=== PATIENT | female | born 1965 | race Caucasian/White ===

== ENCOUNTER 2018-08-17 19:52 | Emergency (ER) | payer SELFPAY ==
[~2018-08-17] VITALS: Ht 144.8 cm; Wt 55.8 kg
[2018-08-17 19:54] VITALS: BP 147/78; PULSE 89; RESP 18; Ht 144.8 cm; Wt 55.8 kg
[2018-08-17] MEDS ORDERED: OXYCODONE/ACETAMINOPHEN (5/325) TAB PO ONE (22:30)
--- NOTE | 2018-08-17 22:50 | ERD ---
ER Documentation Chief Complaint Chief Complaint s/p fall thursday. denies ko.+dizziness denies vomiting HPI 52-year-old female says that she slipped on the floor last Thursday and hit the back of her head. States that there was pain that day but it went away, but for the last two days there has been increasing pain in the back of her head as well as her neck. Denies amnesia, loss of consciousness, vomiting, weakness. States there is some numbness in her face. History of diabetes, hypertension, hypercholesterolemia. Denies allergies. Denies medications. Denies surgeries. Denies alcohol, tobacco, drug use. Up to date on vaccines. ROS All systems reviewed and are negative except as per history of present illness. Allergies Allergies: Coded Allergies: No Known Drug Allergy (Verified Allergy, Unknown, 08/17/18) PMhx/Soc Medical and Surgical Hx: pt denies Medical Hx, pt denies Surgical Hx Hx Alcohol Use: No Hx Substance Use: No Hx Tobacco Use: No Smoking Status: Never smoker FmHx Family History: No diabetes, No coronary disease, No other Physical Exam Vitals Vital Signs Date Temp Pulse Resp B/P (MAP) Pulse Ox O2 O2 Flow FiO2 Time Delivery Rate 08/17/18 97.5 89 18 147/78 96 19:54 (101) Physical Exam General: Well developed, well nourished. No acute distress. Head: Atraumatic. No sinus tenderness to palpation. Head: No signs of basilar fracture including mccoy sign or raccoon eyes. Tenderness to palpation over occipital area. No signs of fracture or lesions noted. Eyes: No icterus, lesions, injection, or edema. Ears: No hematotympanum Nose: No lesions, polyps, or nasal discharge bilaterally. Neck: Midline tenderness to palpation. Pain elicited upon flexion. Heart: RR w/o murmur, rubs, or gallops. Lungs: Clear to auscultation bilaterally w/o wheezes, crackles, rhonchi. Symmetric rise and fall. Equal breath sounds. Neuro: CN II through XII intact. Rapid alternating movement intact. No cerebellar or gait deficits. Strength and sensation intact. Alert and oriented x3. Psych: Normal mood and affect. Results 24 hrs Current Medications Medications Dose Sig/Doug Start Time Status Last (Trade) Ordered Route PRN Stop Time Admin Dose Reason Admin Oxycodone/ 1 tab ONCE ONCE 08/17/18 DC 08/17/18 Acetaminophen PO 22:30 08/17/18 22:39 (Percocet 22:31 (5/ 325)) Procedures/MDM DIAGNOSTIC IMAGING REPORT Patient: JOSHUA BUENROSTRO : 1965 Age: 52 Sex: F MR #: [id number] DOS: 08/17/18 2217 Ordering MD: YANA MARTINEZ Location: [facility] Room/Bed: PROCEDURE: CT Brain without contrast. CLINICAL INDICATION: 52-year-old female. Fell 4 days ago. Headache. TECHNIQUE: A CT of the brain was performed on a multi-slice CT scanner utilizing axial imaging from the skull base through the vertex without IV contrast. Multiplanar reformatted images were made. Images were reviewed on a PACS workstation. One or more the following dose reduction techniques were uti lized: Automated exposure control, adjustment of mA/ or kV according to patient's size, or use of iterative reconstruction technique. DICOM images are available for review. The CTDIvol is 38.84 mGy and the DLP is 634.23 mGycm. COMPARISON: None FINDINGS: No mass effect or midline shift. Normal ventricles for age. No acute intra-axial or extra-axial hemorrhage. No subdural collection. Porter - white matter differentiation is maintained. Visualized paranasal sinuses are clear. Mastoid air cells are clear. IMPRESSION: Negative noncontrast CT brain RPTAT: [facility] Physician Lori Date Time Electronically viewed and signed by Physician Lori on 08/17/2018 22:41 RS/ CC: YANA MARTINEZ [id number] DIAGNOSTIC IMAGING REPORT Patient: JOSHUA BUENROSTRO : 1965 Age: 52 Sex: F MR #: [id number] DOS: 08/17/18 0000 Ordering MD: YANA MARTINEZ Location: [facility] Room/Bed: PROCEDURE: CT Cervical Spine. CLINICAL INDICATION: 52-year-old female. Fell 4 days ago. Neck pain. Midline tenderness. TECHNIQUE: A CT of the cervical spine was performed on a multi-slice CT scanner utilizing thin section axial images from the skull base through the thoracic inlet. One or more the following dose reduction techniques were utilized: Automated exposure control, adjustment of the mA/ or kV according to patient's size, or use of iterative reconstruction technique. Sagittal and coronal reformatted images were made. The CTDIvol is 22.17 mGy and the DLP is 458.35 mGycm. COMPARISON: None. FINDINGS: Intact odontoid and the occipital condyles. The C1 and C2 lateral masses align. No acute fracture. No jumped or perched facets. Normal precervical soft tissues. No obi cord compression. No cervical canal stenosis. No disc space narrowing, significant soft disc herniation or foraminal narrowing. IMPRESSION: No acute cervical spine fracture. RPTAT: [facility] Physician Lori Date Time Electronically viewed and signed by Physician Lori on 08/17/2018 22:43 RS/ CC: YANA MARTINEZ [id number] Er Course: Head and C Spine CT MDM: 52-year-old female says that she slipped on the floor last Thursday and hit the back of her head. States that there was pain that day but it went away, but for the last two days there has been increasing pain in the back of her head as well as her neck. Denies amnesia, loss of consciousness, vomiting, weakness. States there is some numbness in her face. Because of the mechanism of injury and the patient's increasing acute headache over the last 2 days as well as midline tenderness in the cervical spine, decision was made to perform head and cervical spine CT, both within normal limits. Because of the results of the CTs as well as exam, I have low suspicion for intracranial bleed or skull fracture. Patient discharged with strict ER precautions. Patient advised to follow up with PMD. All questions answered at discharge. Departure Diagnosis: Primary Impression: Fall with no significant injury Encounter type: initial encounter Qualified Codes: W19.XXXA - Unspecified fall, initial encounter Additional Impressions: Head pain Headache type: post-traumatic Headache chronicity pattern: acute headache Intractability: not intractable Qualified Codes: G44.319 - Acute post- traumatic headache, not intractable Neck pain Condition: Stable YANA MARTINEZ Aug 17, 2018 22:50
== END 2018-08-17 23:06 | disposition home or self-care (01) ==
LOC: FTE 19:52
DX: G44.319 Acute post-traumatic headache, not intractable (principal); M54.2 Cervicalgia; I10 Essential (primary) hypertension; E11.9 Type 2 diabetes mellitus without complications
CPT/HCPCS: 70450; 72125